=== PATIENT | male | born 1965 | race Caucasian/White ===

== ENCOUNTER → 2021-09-23 09:13 | Outpatient (CLI) | payer BC, SELFPAY | PROVIDERS: PCP Internal Medicine; Referring Provider Podiatrist; Visit Provider Family Medicine | DX: E11.621 Type 2 diabetes mellitus with foot ulcer (principal); L97.512 Non-pressure chronic ulcer of other part of right foot with fat layer exposed; L03.115 Cellulitis of right lower limb; E11.69 Type 2 diabetes mellitus with other specified complication; M86.171 Other acute osteomyelitis, right ankle and foot; E11.40 Type 2 diabetes mellitus with diabetic neuropathy, unspecified; M20.41 Other hammer toe(s) (acquired), right foot; Z79.4 Long term (current) use of insulin; Z79.84 Long term (current) use of oral hypoglycemic drugs | CPT/HCPCS: 11042; 36415; 80053; 83036; 85025; 85651; 86140; 87070; 87075; 87186; 87205; 99204; 99214 ==

== ENCOUNTER → 2021-09-23 11:05 | Outpatient (CLI) | payer BC, SELFPAY ==
[2021-09-23 13:02] LABS: Add Manual Diff / Slide Review NO; Basophils Absolute Auto 0 /uL (0-100); Basophils Percent Auto 0.5 % (0-2); Eosinophils Absolute Auto 200 /uL (0-450); Eosinophils Percent Auto 2.8 % (2-4); Hematocrit 41.3 % (41-53); Hemoglobin 13.4 g/dL (13.5-17.5); Lymphocytes Absolute Auto 1800 /uL (1100-4500); Lymphocytes Percent Auto 22.3 % (25-40); Mean Corpuscular HGB Conc 32.4 % (30-36); Mean Corpuscular Hemoglobin 28.7 PG (26-34); Mean Corpuscular Volume 88.7 fL (80-100); Monocytes Absolute Auto 400 /uL (0-900); Monocytes Percent Auto 5.2 % (3-14); Neutrophils Absolute Auto 5500 /uL (1500-7000); Neutrophils Percent Auto 69.2 % (50-75); Platelet Count 233 X10^3/uL (150-400); Red Blood Cell Count 4.65 X10^6/uL (4.5-5.9); Red Cell Distribution Width 14.4 % (11.6-14.8); White Blood Cell Count 7.9 X10^3/uL (4.5-11.0)
[2021-09-23 13:12] LABS: Hemoglobin A1C% w Est Avg Glu 8.9 % (4.0-6.0)
[2021-09-23 14:12] LABS: Alanine Aminotransferase 66 IU/L (<50); Albumin 4.2 g/dL (3.5-5.0); Albumin Globulin Ratio 1.8 (1.0-2.8); Alkaline Phosphatase 76 U/L (38-126); Aspartate Aminotransferase 44 IU/L (17-59); BUN Creatinine Ratio 21.1 (6-22); Bilirubin Total 0.3 mg/dL (0.2-1.3); Blood Urea Nitrogen 12 mg/dL (9-20); C-Reactive Protein Quant < 0.5 mg/dL (<1.0); Calcium 8.9 mg/dL (8.4-10.2); Carbon Dioxide 30 mmol/L (22-32); Chloride 103 mmol/L (98-107); Estimated Glomerular Filt Rate > 60 mL/min (>60); Globulin 2.4 g/dL (1.7-4.1); Glucose 211 mg/dL (70-100); HEMOLYSIS < 15 (0-50); Potassium 4.7 mmol/L (3.4-5.1); Sodium 140 mmol/L (137-145); Total Protein 6.6 g/dL (6.3-8.2)
[2021-09-23 14:25] LABS: Erythrocyte Sedimentation Rate 14 MM/HR (0-15)
== END ==
PROVIDERS: PCP Internal Medicine; Referring Provider Family Medicine; Visit Provider Family Medicine
DX: E11.621 Type 2 diabetes mellitus with foot ulcer (principal)
CPT/HCPCS: 36415; 80053; 83036; 85025; 85651; 86140

== ENCOUNTER → 2021-09-30 11:34 | Outpatient (CLI) | payer BC, SELFPAY | PROVIDERS: PCP Internal Medicine; Referring Provider Podiatrist; Visit Provider Family Medicine | DX: E11.621 Type 2 diabetes mellitus with foot ulcer (principal); L97.514 Non-pressure chronic ulcer of other part of right foot with necrosis of bone; L03.115 Cellulitis of right lower limb; B95.7 Other staphylococcus as the cause of diseases classified elsewhere; E11.69 Type 2 diabetes mellitus with other specified complication; M86.171 Other acute osteomyelitis, right ankle and foot; E11.40 Type 2 diabetes mellitus with diabetic neuropathy, unspecified; Z79.4 Long term (current) use of insulin; Z79.84 Long term (current) use of oral hypoglycemic drugs | CPT/HCPCS: 87070; 87077; 87147; 87186; 87205; 99213; 99214 ==

== ENCOUNTER → 2021-10-07 13:08 | Outpatient (CLI) | payer BC, SELFPAY | PROVIDERS: PCP Internal Medicine; Referring Provider Internal Medicine; Visit Provider Family Medicine | DX: E11.621 Type 2 diabetes mellitus with foot ulcer (principal); L97.514 Non-pressure chronic ulcer of other part of right foot with necrosis of bone; L03.115 Cellulitis of right lower limb; L08.89 Other specified local infections of the skin and subcutaneous tissue; B95.7 Other staphylococcus as the cause of diseases classified elsewhere; E11.69 Type 2 diabetes mellitus with other specified complication; M86.171 Other acute osteomyelitis, right ankle and foot; E11.40 Type 2 diabetes mellitus with diabetic neuropathy, unspecified; M20.41 Other hammer toe(s) (acquired), right foot | CPT/HCPCS: 11042; 99213 ==

== ENCOUNTER → 2021-10-14 13:12 | Outpatient (CLI) | payer BC, SELFPAY | PROVIDERS: PCP Internal Medicine; Referring Provider Internal Medicine; Visit Provider Family Medicine | DX: E11.621 Type 2 diabetes mellitus with foot ulcer (principal); L97.514 Non-pressure chronic ulcer of other part of right foot with necrosis of bone; L08.89 Other specified local infections of the skin and subcutaneous tissue; E11.69 Type 2 diabetes mellitus with other specified complication; M86.171 Other acute osteomyelitis, right ankle and foot; B95.7 Other staphylococcus as the cause of diseases classified elsewhere; E11.40 Type 2 diabetes mellitus with diabetic neuropathy, unspecified; M20.40 Other hammer toe(s) (acquired), unspecified foot | CPT/HCPCS: 11042; 99212; 99213 ==

== ENCOUNTER 2023-07-19 15:57 | Emergency (ER) | payer OTHER, SELFPAY ==
[2023-07-19 16:01] VITALS: BP 127/72; PULSE 85; RESP 16; TEMP 36.6; O2SAT 95; BMI 28.1
--- NOTE | 2023-07-19 16:23 | DI.CT.S_ITS ---
PROCEDURE: CT ABDOMEN PELVIS W CON INDICATIONS: ?pancreatitis; epigastric px, vomiting TECHNIQUE: After the administration of intravenous contrast, axial sections acquired from the lung bases to the pubic symphysis. Coronal and sagittal reformats were performed. For radiation dose reduction, the following was used: automated exposure control, adjustment of mA and/or kV according to patient size. COMPARISON: None. FINDINGS: Lower thorax: The lung bases are clear. Heart size normal. No hiatal hernia. Liver: Normal in size and attenuation. No contour deformity present. Biliary system: No calcified cholelithiasis or pericholecystic inflammation. No intra or extrahepatic bile duct dilatation. Pancreas: Unremarkable without mass or inflammation evident. Spleen: Normal in size and density. Adrenals: Normal morphology and density. Reproductive system: Unremarkable as visualized. Urinary system: Normal renal size and attenuation. No renal calculi, hydronephrosis, or solid mass present. Urinary bladder unremarkable. Gastrointestinal system: Large amount of fecal debris throughout the colon without obstruction. Appendix: No findings to suggest acute appendicitis. Peritoneal spaces: No mesenteric or retroperitoneal adenopathy. No free air. No free fluid. Vasculature: The IVC, aorta and iliac vasculature are unremarkable. Abdominal wall: Abdominal wall intact without evidence of ventral or inguinal hernias. Musculoskeletal: Normal bone mineralization. Degenerative disc disease and arthropathy noted in lower lumbar spine. No acute fractures. IMPRESSION: 1. Large amount of fecal debris throughout the colon without obstruction. No CT evidence of pancreatitis Approved by: Chilango Cee M.D. on 07/19/2023 at 17:20
--- NOTE | 2023-07-19 16:33 | ED.ABDPAIN ---
HPI - Abdominal Pain General Chief Complaint: Abdominal Pain Stated Complaint: abd pain N/V Time Seen by Provider: 07/19/23 16:11 History of Present Illness HPI narrative: 58-year-old male with past medical history diabetes, Obstructive sleep apnea, chronic pain presents to the ED for 1 day of epigastric pain, vomiting. 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 Patient states that this morning, he experienced severe epigastric pain followed by vomiting. Patient states that the pressure in his stomach and pain were much relieved by the several bouts of vomiting. In the ED patient states that his epigastric region feels sore but he is not in pain. Patient also denies nausea in the ED. patient denies fever, chills, chest pain, shortness of breath, dysuria, diarrhea, constipation, lightheadedness, dizziness, syncope. Patient endorses a distant history of pancreatitis about 8 years ago, is unclear what the cause of the pancreatitis was. Denies gallstones, alcohol use. Related Data Previous Rx's Medication Instructions Recorded metoclopramide HCl 5 mg tablet 5 mg PO QAC 14 days #42 tabs 07/19/23 (Reglan) Allergies Allergy/AdvReac Type Severity Reaction Status Date / Time No Known Drug Allergies Allergy Verified 07/19/23 18:00 Review of Systems Constitutional Constitutional: Denies chills, Denies fatigue, Denies fever(s), Denies frequent falls, Denies lethargy and Denies weakness Eyes Eyes: Denies change in vision, Denies eye discharge, Denies irritation and Denies loss of vision ENT Ears, Nose, Mouth, and Throat: Denies change in voice, Denies dizziness, Denies neck pain, Denies sore throat and Denies throat swelling Cardiovascular Cardiovascular: Denies chest pain, Denies irregular heart rhythm, Denies lightheadedness, Denies palpitations, Denies dyspnea, Denies dyspnea on exertion and Denies orthopnea Respiratory Respiratory: Denies cough, Denies dyspnea, Denies dyspnea on exertion and Denies wheezing Gastrointestinal Gastrointestinal: Reports abdominal pain, Denies change in bowel habits, Denies diarrhea, Reports nausea and Reports vomiting Musculoskeletal Musculoskeletal: Denies neck pain and Denies numbness Integumentary/Breasts Skin/Breast: Denies pruritus, Denies erythema, Denies rash and Denies wounds Neurologic Neurologic: Denies behavioral changes, Denies confusion, Denies dizziness, Denies frequent falls, Denies loss of vision, Denies numbness and Denies weakness Psychiatric Psychiatric: Denies anxiety, Denies behavioral changes, Denies confusion, Denies depression, Denies homicidal ideation and Denies suicidal ideation Endocrine Endocrine: Denies fatigue, Denies flushing and Denies palpitations Hematologic/Lymphatic Hematologic/Lymphatic: Denies easy bruising Allergic/Immunologic Allergic/Immunologic: Denies urticaria, Denies throat swelling and Denies wheezing Exam Narrative Exam Narrative: Const General:?cooperative, healthy appearing and comfortable [facility] Head:?normal to inspection Ears:?hearing grossly normal bilaterally Nose:?external nose normal Face and sinus:?normal facial exam and sinuses nontender Mouth:?oral mucosae normal Throat:?posterior oropharynx normal Eyes General:?appearance normal, both eyes and all related structures Neck Neck:?normal visual inspection and no lymphadenopathy noted Resp Effort & Inspection:?normal respiratory effort Auscultation:?clear to auscultation bilaterally Cardio Rate:?regular rate Rhythm:?regular rhythm GI Abdomen is soft, nondistended. Abdomen is tender to palpation in the epigastric region. Neuro General:?patient alert, patient awake and patient oriented x3 Initial Vital Signs Initial Vital Signs: Vital Signs Temperature 97.8 F 07/19/23 16:01 Pulse Rate 85 07/19/23 16:01 Respiratory Rate 16 07/19/23 16:01 Blood Pressure 127/72 07/19/23 16:01 Pulse Oximetry 95 07/19/23 16:01 Oxygen Delivery Method Room Air 07/19/23 16:01 Course Orders Ordered: Discontinued Medications Metoclopramide HCl (Metoclopramide 10 Mg/2 Ml Inj) 10 mg IV NOW ONE Stop: 07/19/23 17:35 Last Admin: 07/19/23 17:58 Dose: 10 mg Documented By: DANE Vital Signs Vital signs: Vital Signs - 8 hr 07/19/23 16:01 07/19/23 17:00 Temperature 97.8 F Pulse Rate 85 84 Respiratory Rate 16 18 Blood Pressure 127/72 121/80 Pulse Oximetry 95 98 Oxygen Delivery Method Room Air Room Air MDM - Abdominal Pain Lab Data 07/19/23 16:25 07/19/23 16:25 Labs: Lab Results 07/19/23 Range/Units 16:25 WBC 12.3 H (4.5-11.0) X10^3/uL RBC 5.11 (4.5-5.9) X10^6/uL Hgb 15.0 (13.5-17.5) g/dL Hct 45.3 (41-53) % MCV 88.6 (80-100) fL MCH 29.3 (26-34) PG MCHC 33.1 (30-36) % RDW 13.6 (11.6-14.8) % Plt Count 262 (150-400) X10^3/uL Neut % (Auto) 84.2 H (50-75) % Lymph % (Auto) 10.9 L (25-40) % [place] % (Auto) 4.1 (3-14) % Eos % (Auto) 0.4 L (2-4) % Baso % (Auto) 0.4 (0-2) % Neut # (Auto) 49717 H (9079-4949) /uL Lymph # (Auto) 1300 (3841-5292) /uL [place] # (Auto) 500 (0-900) /uL Eos # (Auto) 0 (0-450) /uL Baso # (Auto) 100 (0-100) /uL Sodium 140 (137-145) mmol/L Potassium 4.0 (3.4-5.1) mmol/L Chloride 101 (98-107) mmol/L Carbon Dioxide 29 (22-32) mmol/L BUN 12 (9-20) mg/dL Creatinine 0.51 L (0.66-1.25) mg/dL Estimated GFR > 60 (>60) mL/min BUN/Creatinine Ratio 23.5 H (6-22) Glucose 124 H (70-100) mg/dL Calcium 9.1 (8.4-10.2) mg/dL Total Bilirubin 0.6 (0.2-1.3) mg/dL AST 31 (17-59) IU/L ALT 30 (<50) IU/L Alkaline Phosphatase 63 (38-126) U/L Total Protein 7.7 (6.3-8.2) g/dL Albumin 4.5 (3.5-5.0) g/dL Globulin 3.2 (1.7-4.1) g/dL Albumin/Globulin Ratio 1.4 (1.0-2.8) Lipase 36 (23-300) U/L MDM Narrative Medical decision making narrative: 58-year-old male with past medical history diabetes, Obstructive sleep apnea, chronic pain presents to the ED for 1 day of epigastric pain, vomiting. Concern for pancreatitis versus gastroenteritis versus gastritis versus gastroparesis versus other intra abdominal etiology versus other. Will obtain labs, lipase, CT abdomen pelvis. Will reassess. Labs within normal limits. CT abdomen pelvis shows a large burden of fecal debris throughout the colon without signs of obstruction. No other acute findings on CT. Discussed findings with patient and also possibility of gastroparesis due to the Victoza. Recommend holding off on Victoza until further evaluation by endocrinology. Patient's symptoms improved with Reglan. Prescribed Reglan for home use as needed. ED return precautions discussed with patient. Patient verbalized understanding. Medical records reviewed: Yes Discharge Plan Departure Patient Disposition: Home Clinical Impression: Abdominal pain Qualifiers: Abdominal location: epigastric Qualified Code(s): R10.13 - Epigastric pain Instructions: DI for Abdominal Pain-Adult Activity Restrictions/Additional Instructions: You were evaluated in the ED today for abdominal pain and vomiting. Your labs were normal. Your CT scan showed a large amount of fecal debris throughout the colon without any obstruction or other acute findings. It is possible that your symptoms were caused by gastroparesis which is slow emptying of the stomach, which can be a side-effect of the Victoza. Your symptoms improved with Reglan. You were being prescribed Reglan for the gastroparesis which you may take prior to meals as needed. Reglan will also help with pain and nausea. Please follow-up with your extra gang supervisor as soon as possible for further evaluation. Please stop the Victoza until you speak with your extra gang supervisor. Return to the ED if you have worsening symptoms, persistent vomiting and worsening abdominal pain. Prescriptions: New metoclopramide HCl [Reglan] 5 mg tablet 5 mg PO QAC 14 Days Qty: 42 0RF Rx Instructions: administer 30 minutes before meals Referrals: Higinio Wei MD [Primary Care Provider] - Stand Alone Forms: Patient Portal/API
[2023-07-19 16:34] LABS: Add Manual Diff / Slide Review NO; Basophils Absolute Auto 100 /uL (0-100); Basophils Percent Auto 0.4 % (0-2); Eosinophils Absolute Auto 0 /uL (0-450); Eosinophils Percent Auto 0.4 % (2-4); Hematocrit 45.3 % (41-53); Lymphocytes Absolute Auto 1300 /uL (1100-4500); Lymphocytes Percent Auto 10.9 % (25-40); Mean Corpuscular HGB Conc 33.1 % (30-36); Mean Corpuscular Hemoglobin 29.3 PG (26-34); Mean Corpuscular Volume 88.6 fL (80-100); Monocytes Absolute Auto 500 /uL (0-900); Monocytes Percent Auto 4.1 % (3-14); Neutrophils Absolute Auto 10300 /uL (1500-7000); Neutrophils Percent Auto 84.2 % (50-75); Platelet Count 262 X10^3/uL (150-400); Red Blood Cell Count 5.11 X10^6/uL (4.5-5.9); Red Cell Distribution Width 13.6 % (11.6-14.8); White Blood Cell Count 12.3 X10^3/uL (4.5-11.0)
[2023-07-19 16:48] LABS: Alanine Aminotransferase 30 IU/L (<50); Albumin 4.5 g/dL (3.5-5.0); Albumin Globulin Ratio 1.4 (1.0-2.8); Alkaline Phosphatase 63 U/L (38-126); Aspartate Aminotransferase 31 IU/L (17-59); BUN Creatinine Ratio 23.5 (6-22); Bilirubin Total 0.6 mg/dL (0.2-1.3); Blood Urea Nitrogen 12 mg/dL (9-20); Calcium 9.1 mg/dL (8.4-10.2); Carbon Dioxide 29 mmol/L (22-32); Chloride 101 mmol/L (98-107); Estimated Glomerular Filt Rate > 60 mL/min (>60); Globulin 3.2 g/dL (1.7-4.1); Glucose 124 mg/dL (70-100); HEMOLYSIS < 15 (0-50); Lipase 36 U/L (23-300); Sodium 140 mmol/L (137-145); Total Protein 7.7 g/dL (6.3-8.2)
[2023-07-19 17:00] VITALS: BP 121/80; PULSE 84; RESP 18; O2SAT 98
[2023-07-19] MEDS: METOCLOPRAMIDE 10 MG/2 ML INJ IV (17:58)
[2023-07-19 18:05] VITALS: BP 125/74; PULSE 80; RESP 16; O2SAT 98
[2023-07-19 19:18] VITALS: BP 127/69; PULSE 82; RESP 118; TEMP 37.1; O2SAT 98
== END 2023-07-19 19:10 | disposition home or self-care (01) ==
PROVIDERS: Emergency Provider Student in an Organized Health Care Education/Training Program; PCP Internal Medicine
DX: R10.13 Epigastric pain (principal); R11.10 Vomiting, unspecified
CPT/HCPCS: 36415; 74177; 80053; 83690; 85025; 96374; 99284; J2765; Q9967